=== PATIENT | male | born 1945 | race Caucasian/White ===

== ENCOUNTER → 2016-09-18 | Outpatient (CLI) | payer MEDICARE, OTHER ==
[~2016-09-18] MED LIST: ASPIRIN EC81 MG PO; BENADRYL25 MG PO; LIPITOR80 MG PO; NITROSTAT0.4 MG SL; PROTONIX40 MG PO; PROVENTIL HFA6.7 GM INH; PROVENTIL OR V6.7 GM INH; PROZAC20 MG PO; SYMBICORT 16010.2 GM INH; TENORMIN25 MG PO; [UNRECOGNIZED DRUG - REMARK] PO
== END | disposition disaster alternative care site (69) ==
LOC: LFPA 15:29
DX: R06.02 Shortness of breath (principal)

== ENCOUNTER 2016-10-25 06:00 | Outpatient (CLI) | payer MEDICARE, OTHER ==
[~2016-10-25] VITALS: Ht 172.7 cm; Wt 76.1 kg
--- NOTE | ~2016-10-25 | CATH ---
Cardiac Diagnostic Report Demographics Patient Name ANNA Mcgraw Gender Male Date of 1945 Age 70 year(s) Patient Number [id number] Date of Study 10/25/2016 Visit Number [id number] Room Number G6399 [place] [id number] Ht 172.8 cm Wt 76.1 kg Referring Lucila Badillo Primary Physician Physician Performing Efstratiou Secondary Physician Physician Galina Tompkins MD Diagnostic Efstratiou Assisting Physician Physician Galina Tompkins MD Interventional Physician Editorial Manager Physician Findings and Conclusions Diagnostic Findings and Conclusion 40% in all three vessels Patent SVG's to RPDA and OM2 Patent stents to LAD Diagnostic Recommendations medical therapy Procedure Description The patient was brought to the diagnostic cardiac catheterization-EP laboratory in the fasting, non-sedated state. Informed consent was obtained in the written and verbal form after the risks and benefits were explained. The patient had no further questions and agreed to proceed. The planned puncture-incision site(s) were shaved and prepped with ChloraPrep and draped in the usual sterile manner. Conscious sedation, supplemental oxygen, and pain control medications were delivered by a registered nurse under physician guidance. Surface ECG rhythm, blood pressure measurement, and pulse oximetry were monitored throughout the procedure. Arterial access. The access site was infiltrated with lidocaine. The vessel was entered with the Seldinger technique. A sheath was advanced into the vessel and used for catheter placement. Selective left coronary angiography. A catheter was advanced into the left coronary vessel ostium under Fluoroscopic guidance. Contrast was injected by hand. Images were obtained in multiple projections. Selective right coronary angiography. A catheter was advanced into the right coronary vessel ostium under fluoroscopic guidance. Contrast was injected by hand. Images were obtained in multiple projections. Selective SVG angiography. A catheter was advanced into the graft proximal anastomosis under fluoroscopic guidance. Contrast was injected by hand. Images were obtained in multiple projections. Arterial artery hemostasis. Hemostasis was achieved. The patient was transferred to a regular nursing floor via cart accompanied by a nurse. The patient left the laboratory in stable condition. Diagnostic Cath Status: Elective Procedure Procedure Type Diagnostic procedure:Angiography:, Coronary Angios w/Grafts Indications: Abnormal cardiolyte. The procedure was explained in detail to the patient. Risks, complications and alternative treatments were reviewed. Written consent was obtained. Medications Reviewed with Patient prior to Procedure. Angiographic Findings Dominance: Right Cardiac Arteries and Lesion Findings LMCA: Abnormal.patent LAD: Abnormal.40% prox, long stented area in mid vessel shows 40% focal restonosis Diag patent Lesion on Prox LAD: Proximal subsection.40% stenosis . Lesion on Mid LAD: Mid subsection.40% stenosis . LCx: Abnormal.100% mid SVG to OM 30% distal Lesion on Mid CX: Mid subsection.100% stenosis . RCA: Abnormal.100% proximal PL 40% post SVG SVG to PDA 40% mid Lesion on Prox RCA: Proximal subsection.100% stenosis . Lesion on 1st RPL: Distal subsection.40% stenosis . Graft Lesions Lesion on Aorta Left to 1st Ob [place]: Distal body.30% stenosis . Lesion on Aorta Right to R PDA: Middle body.40% stenosis . Cardiac Grafts - There is a Vein graft that originates at the Aorta Left and attaches to the 1st Ob [place]. - There is a Vein graft that originates at the Aorta Right and attaches to the R PDA. Coronary Tree Procedure Data Procedure Date Date: 10/25/2016Start: 08:59 AMEnd: 09:25 AM Entry Locations - Retrograde Percutaneous access was performed through the Right Radial artery (Primary location). A 6 Fr sheath was inserted. Hemostasis was successfully obtained using Mechanical Compression. Closure Comments: 10 ml of air in R. Band by Fior Ndiaye.. Procedure Medications Order and Administration + + +-------+ + !Time !Medication !Dosage !Route ! + + +-------+ + !10/25/2016 !Versed !1 mg !I.V. ! !08:55 AM ! ! ! ! + + +-------+ + !10/25/2016 !Fentanyl !25 mcg !I.V. ! !08:59 AM ! ! ! ! + + +-------+ + !10/25/2016 !PAE Radial Cocktail: Heparin 5000 units, ! !I.A. ! !09:01 AM !Nitroglycerin 200mcg, Verapamil 3 mg ! ! ! ! !(ACC_3) ! ! ! + + +-------+ + !10/25/2016 !0.9% NaCl !200 ml !I.V. bolus! !09:03 AM ! ! ! ! + + +-------+ + !10/25/2016 !Oxygen !2 l/min!NC ! !09:10 AM ! ! ! ! + + +-------+ + !10/25/2016 !Oxygen ! ! ! !09:22 AM ! ! ! ! + + +-------+ + Devices Used - A6 Fr. BS JR 4 Diag. Catheterwas used for:Right coronary angiography. - A6 Fr. BS JL 3.5 Diag. Catheterwas used for:Left coronary angiography. - A6 Fr. MPA2 Diag. Catheterwas used for:SVG. - A6 Fr. BS AL1 Diag. Catheterwas used for:SVG. Contrast Material - Isovue 54735 ml Fluoroscopy Time: Diagnostic: 7:06 minutes. Total: 7:06 minutes. Fluoroscopy Dose: Diagnostic: 959 mGy. Total: 959 mGy. Estimated Blood Loss: 10 ml. Medical History Allergies - No known allergies. Risk Factors The patient risk factors include:prior PCI on 01/18/2013; prior CABG on 05/12/2001;previous vascular surgery;peripheral arterial disease, physical activity, hypercholesterolemia, hypertension, last creatinine: 1 mg/dl, creatinine clearance: 73.99 ml/min, dyslipidemia, former tobacco use, prior heart failure , previous femoral procedure and prior DE . Admission Data Admission Date: 10/25/2016 Admission Time: 06:00 AM Admit Source: Other Insurance Payors: Medicare. Admission Medications + +------+------+ + + + + !Medication !Dosage!Times !Last !Last !Administered !Comments ! ! ! !Per !Delivery !Delivery ! ! ! ! ! !Day !Date !Time ! ! ! + +------+------+ + + + + !Aspirin ! ! ! ! ! ! ! !(any) ! ! ! ! ! ! ! + +------+------+ + + + + !Beta ! ! ! ! ! ! ! !Alexa ! ! ! ! ! ! ! !(any) ! ! ! ! ! ! ! + +------+------+ + + + + !Statin ! ! ! ! ! ! ! !(any) ! ! ! ! ! ! ! + +------+------+ + + + + Clinical Evaluation Leading to Procedure - The patient's CAD presentation was assessed as: Unstable angina. - The patient's anginal syndrome during the past two weeks was assessed as: Class IV according to the [employer] Cardiovascular [employer] Classification System (CCS). Anti-anginal medications were prescribed during the past two weeks. The medications are: Beta Blockers and Other. - The patient has been in a state of heart failure within the past two weeks. - The patient's heart failure status was assessed as NYHA Class I, with CHF symptoms of FLYNN. [facility] Ventriculography Findings stress positive inferolateral wall Snapshots Hemodynamics Condition: Rest O2 Consumption: Estimated: 215.92Heart Rate: 65 bpm Pressures (mmHg) +-----+ + !Site !Pressure ! +-----+ + !AO !88/60 (73) ! +-----+ + !AO !102/54 (76) ! +-----+ + Shunts Oxygen Values O2 Capacity 223.04 O2 Consumption 215.92 Discharge Data Discharge Date: 10/25/2016 Hospital Status: Outpatient Signatures dtt: Precious Vasquez dtd: 10/25/16 [id number] Physician Self Edit
[2016-10-25 07:01] LABS: BASOPHIL # 0.1 K/uL (0.0-0.2); BASOPHIL % 1.4 %; EOSINOPHIL # 0.3 K/uL (0.0-0.5); EOSINOPHIL % 5.1 %; HEMATOCRIT 45.5 % (37.0-53.0); HEMOGLOBIN 16.4 g/dL (11.0-16.0); IMMATURE GRANULOCYTE % 0.2 %; LYMPHOCYTE # 1.6 K/uL (0.8-4.0); LYMPHOCYTE % 32.6 %; MCH 32.2 pg (27.0-34.0); MCV 89.4 fl (83.0-98.0); MONOCYTE # 0.5 K/uL (0.0-1.0); MONOCYTE % 10.6 %; MPV 11.6 fl (9.4-12.4); NEUTROPHIL # (ANC) 2.5 K/uL (1.4-9.0); NEUTROPHIL % 50.1 %; NRBC % 0 /100WBC (0-0.00); PLATELET COUNT 160 K/uL (150-450); RBC 5.09 M/uL (3.50-5.50); WBC 4.9 K/uL (4.0-11.0)
[2016-10-25 07:10] LABS: INR - (THERAPEUTIC) 1.04 (0.92-1.07); PROTIME 10.9 SECONDS (9.8-11.4); PTT 23 SECONDS (25-32)
[2016-10-25 07:15] LABS: ALBUMIN 3.7 gm/dL (3.5-5.0); ALK PHOS 80 IU/L (33-138); ALT 32 IU/L (12-78); ANION GAP 10.6 (10.0-19.0); AST 20 IU/L (10-40); BLOOD UREA NITROGEN 16 mg/dL (6-24); CALCIUM 8.1 mg/dL (8.5-10.5); CHLORIDE 112 mMol/L (96-110); CO2 26 mMol/L (22-32); POTASSIUM 3.6 mMol/L (3.7-5.1); SODIUM 145 mMol/L (135-145); TOTAL BILIRUBIN 0.6 mg/dL (0.0-1.5); TOTAL PROTEIN 6.4 g/dL (6.0-8.4)
[2016-10-25 07:16] LABS: ESTIMATED GFR (MDRD EQUATION) > 60
== END 2016-10-25 15:05 | disposition disaster alternative care site (69) ==
LOC: GPOC 06:00 → GPCU 06:00 → GPOC 15:05
PROVIDERS: Internal Medicine Cardiovascular Disease
PROC: 4A023N7 Measurement of Cardiac Sampling and Pressure, Left Heart, Percutaneous Approach (ICD-10-PCS; principal; 2016-10-25)
PROC: B216YZZ Fluoroscopy of Right and Left Heart using Other Contrast (ICD-10-PCS; 2016-10-25)
DX: I25.110 Atherosclerotic heart disease of native coronary artery with unstable angina pectoris (principal); R94.31 Abnormal electrocardiogram [ECG] [EKG]
CPT/HCPCS: C1894; J1644; J2001; J2250; J3010; J7030; J7120